=== PATIENT | female | born 1975 | race African-American/Black ===

== ENCOUNTER 2023-08-06 00:19 | Emergency (ER) | payer MEDICARE, OTHER ==
[~2023-08-06] VITALS: Ht 167.6 cm; Wt 86.2 kg
[~2023-08-06 00:19] MED LIST: PREN1TAB81
[2023-08-06 00:52] VITALS: BP 153/99; TEMP 98.2; O2SAT 100
== END 2023-08-06 02:43 | disposition home or self-care (01) ==
LOC: ER 00:21
DX: R07.89 Other chest pain (principal); Z53.21 Procedure and treatment not carried out due to patient leaving prior to being seen by health care provider